=== PATIENT | female | born 1990 | race Caucasian/White ===

== ENCOUNTER 2016-09-09 08:41 | Inpatient (IN) ==
--- NOTE | 2016-09-09 10:55 | Diag Imaging Result Document ---
PROCEDURE NAME: HIDA SCAN W/O EJECT. FRACTION - 09/09/2016 HIDA SCAN: COMPARISON: Ultrasound from 09/07/2016. FINDINGS: 5.6 mCi of Choletec was administered. Throughout the 60 minutes of conventional imaging, there is no definite gallbladder visualized. On the 90 minute post image, there is a tiny amount of radiotracer uptake in the expected region of the gallbladder fundus. This is very weak indeed. IMPRESSION: Equivocal exam. Minimal area of radiotracer accumulation in the expected region of the gallbladder fundus may simply be hepatic uptake from an inflamed gallbladder. Acute Colles cholecystitis cannot be excluded on the basis of this exam.
[2016-09-09] MEDS: HUMULIN R SUBQ SCH (17:41)
[2016-09-09] MEDS: MORPHINE IV PRN ×3 (17:52→22:27)
[2016-09-09] MEDS: ZOFRAN IV PRN ×2 (17:52→22:26)
[2016-09-09] MEDS: LR 1,000 ML IV SCH ×2 (17:53→23:00)
[2016-09-09] MEDS: MEFOXIN 2 GM/NS 50 ML IV SCH (19:18)
[2016-09-09] MEDS ORDERED: MORPHINE IV ONE (21:18)
[2016-09-10] MEDS: ZOFRAN IV PRN ×2 (07:00→10:45)
[2016-09-10] MEDS: MORPHINE IV PRN ×2 (07:00→10:45)
[2016-09-10] MEDS ORDERED: MARCAINE 0.25% PF/EPI 1:200,000 ONE (07:03)
[2016-09-10] MEDS ORDERED: XYLOCAINE 1% ONE (07:04)
[2016-09-10] MEDS ORDERED: LR 1,000 ML ONE (07:04)
[2016-09-10] MEDS ORDERED: SODIUM CHLORIDE 0.9% ONE (07:29)
[2016-09-10] MEDS ORDERED: TRANSDERM-SCOP ONE (08:04)
[2016-09-10] MEDS ORDERED: FENTANYL ONE (09:56)
[2016-09-10] MEDS ORDERED: DIPRIVAN 1% ONE (09:56)
--- NOTE | 2016-09-10 10:06 | OPERATIVE NOTE ---
PROCEDURE DATE: 09/10/2016 PREOPERATIVE DIAGNOSIS: Acute cholecystitis. BMI greater than 50. POSTOPERATIVE DIAGNOSIS: Acute cholecystitis. BMI greater than 50. PROCEDURES: Laparoscopic cholecystectomy. SURGEON: Valente Longo MD. CUSTOM HARVESTER: None. ANESTHESIA: General endotracheal. INTRAOPERATIVE FINDINGS: As above. COMPLICATION: None at time of dictation. ESTIMATED BLOOD LOSS: 20 mL. SPECIMENS REMOVED: Gallbladder. BRIEF HISTORY: The patient is a 26-year-old female with a BMI greater than 50. She was evaluated in the office and found to have a HIDA scan that showed nonvisualization the gallbladder concerning for cholecystitis. She was admitted and underwent 12 hours of antibiotics. We discussed with her the laparoscopic cholecystectomy. All questions were answered. DESCRIPTION OF PROCEDURE: After informed consent was obtained, the patient was brought to the operative theatre and transferred to the operating table and placed in the supine position. General tracheal anesthesia was then performed without complication. A formal time-out was then performed confirming patient, date, procedure. All were in agreement. At that time, attention given to the abdomen. Infraumbilical incision was made through which in the Optiview technique we inserted an 11 mm trocar, connected to insufflation. Pneumoperitoneum was achieved. Under direct visualization, we placed 3 more trocars, all 5 mm; 1 in the subxiphoid, 2 in the right upper quadrant. Using these, the gallbladder was identified. It was distended and had an inflamed tissue around it consistent with cholecystitis. We dissected out the surrounding tissue. We retracted the gallbladder cephalad, dissected out the cystic duct and cystic artery and doubly clipped and ligated the cystic duct and cystic artery after achieving the critical view of safety. We then dissected the gallbladder off the gallbladder fossa and placed it into an Endobag and brought it out through the infraumbilical incision. We then turned our attention to the gallbladder fossa. Again, there was no active drainage of bile. No bleeding. The clips were in good position. We irrigated the abdomen copiously. We closed the infraumbilical incision with 0 Vicryl and a Greg-Kevan device. Removed all trocars, disconnected insufflation. Pneumoperitoneum was released. We then closed all skin incisions with 4-0 Monocryl. The patient tolerated the procedure well and was transferred to the recovery room in stable condition. cc: Valente Longo MD
--- NOTE | 2016-09-10 10:06 | PROGRESS NOTE ---
DATE: 09/10/2016 SUBJECTIVE: Patient is doing okay. Still with some pain. Discussed extensively with her the risks, benefits, alternatives of the procedure. She has no questions currently. OBJECTIVE: Vital Signs: Patient is currently afebrile. Her vital signs have been stable. General: No acute distress. HEENT: Normocephalic, atraumatic. Pupils equal, round, reactive to light. Mucous membranes moist. Oropharynx benign. Neck: Supple. Trachea midline. Cardiovascular: Regular rate and rhythm. Lungs: Grossly clear. Abdomen: Obese but some tenderness to palpation in the right upper quadrant. No peritoneal signs. Extremities: Moves all extremities. Neurologic: Grossly intact. Skin: No signs of jaundice. Vascular: All extremities perfused. LABORATORY: Still at this point, pending. ASSESSMENT AND PLAN: A 26-year-old female with possible acute cholecystitis. Possible acute cholecystitis: She has been admitted and been on antibiotics for least 12 hours. We will plan on surgical intervention today with laparoscopic cholecystectomy. I did discuss with her the risks, benefits, alternatives of the procedure. She had all her questions answered. She voices understanding. cc: Valente Longo MD
[2016-09-10] MEDS ORDERED: NORCO-10 PO PRN (10:17)
[2016-09-10] MEDS ORDERED: SODIUM CHLORIDE 0.9% INJ ONE (11:37)
[2016-09-10] MEDS ORDERED: PHENERGAN IV ONE (11:37)
[2016-09-10] MEDS ORDERED: SODIUM CHLORIDE 0.9% 10 ML ONE (11:54)
[2016-09-10] MEDS ORDERED: PHENERGAN ONE (11:54)
[2016-09-10] MEDS: MEFOXIN 2 GM/NS 50 ML IV SCH ×3 (12:00→17:27)
[2016-09-10 16:36] LABS: BASO% 0.8 % (0.0-0.8); EOS# 0.23 X1000 (0.0-0.7); EOS% 3.7 % (0.0-10.0); HEMATOCRIT 38.1 % (37.0-47.0); HEMOGLOBIN 13.4 g/dL (12.0-16.0); LYMPH# 2.37 X1000 (1.2-3.4); LYMPH% 38.4 % (20.5-51.1); MANUAL DIFF NEEDED? NO; MCH 33.1 PG (27-31); MCHC 35.2 g/dL (33-37); MCV 94.1 FL (81-99); MONO% 11.3 % (1.7-9.3); MPV 9.7 FL (7.4-10.4); NEUT% 45.8 % (42.2-75.2); PLT 208 X1000 (130-400); RBC 4.05 XMIL (4.2-5.4)
[2016-09-10 16:48] LABS: AGAP 14; ALBUMIN 3.8 g/dL (3.5-5.0); ALKALINE PHOSPHATASE 63 U/L (32-104); BUN 15 mg/dL (8-22); CHLORIDE 104 mmol/L (98-107); COSMO 285; GOT 24 U/L (10-30); GPT 38 U/L (10-36); POTASSIUM 3.7 mmol/L (3.5-5.1); SODIUM 142 mmol/L (136-145); TCO2 24 mmol/L (25-35); TOTAL PROTEIN 6.5 g/dL (6.3-8.3)
[2016-09-10] MEDS: LR 1,000 ML IV SCH (17:24)
[2016-09-10] MEDS: HUMULIN R SUBQ SCH ×2 (17:28→17:32)
[2016-09-12] MEDS ORDERED: NEOSTIGMINE ONE (08:59)
[2016-09-12] MEDS ORDERED: ZOFRAN ONE (08:59)
[2016-09-12] MEDS ORDERED: ANESTHESIA PB SET 88 IN 5742 ONE (08:59)
[2016-09-12] MEDS ORDERED: EXTENSION SET 32 IN 4522 ONE (08:59)
[2016-09-12] MEDS ORDERED: QUELICIN (DOSE) ONE (08:59)
[2016-09-12] MEDS ORDERED: NIMBEX 2 MG DOSE ONE (08:59)
[2016-09-12] MEDS ORDERED: ROBINUL ONE (08:59)
[2016-09-12] MEDS ORDERED: XYLOCAINE-MPF 2% ONE (08:59)
[2016-09-12] MEDS ORDERED: DECADRON ONE (08:59)
[2016-09-12] MEDS ORDERED: LR 2,000 ML ONE (08:59)
[2016-09-14 15:34] VITALS: BP 115/73
== END 2016-09-10 12:15 | disposition home or self-care (01) ==
LOC: NM 08:41 → DIRADM 15:05 → 4N 15:58 → DIRADM 09-10 12:15
PROVIDERS: ADMIT Surgery; ATTEND Surgery